=== PATIENT | male | born 1995 | race Hispanic/Latino ===

== ENCOUNTER 2018-01-29 19:49 | Emergency (ER) | payer SELFPAY ==
[~2018-01-29] VITALS: Ht 188 cm; Wt 68.0 kg
[2018-01-29 21:04] LABS: AMPHETAMINES SCREEN,URINE NEGATIVE (NEGATIVE); BENZODIAZEPINES SCREEN,URINE NEGATIVE (NEGATIVE); PHENCYCLIDINE SCREEN,URINE NEGATIVE (NEGATIVE)
== END 2018-01-29 23:42 | disposition left against medical advice (07) ==
LOC: ER 19:49
DX: K62.5 Hemorrhage of anus and rectum (principal)
CPT/HCPCS: 80307